=== PATIENT | male | born 1990 | race African-American/Black ===

== ENCOUNTER 2019-07-23 20:38 | Emergency (ER) | payer SELFPAY ==
[~2019-07-23] VITALS: Ht 175.3 cm; Wt 83.0 kg
[2019-07-23 20:50] VITALS: BP 132/69
[2019-07-23] MEDS ORDERED: KETOROLAC 60MG/2ML VIAL IM ONE (22:00)
[2019-07-23] MEDS ORDERED: DIPHENHYDRAMINE 25MG CAPSULE PO ONE (22:30)
[2019-07-23] MEDS ORDERED: ONDANSETRON 4MG ODT PO ONE (22:30)
== END 2019-07-23 23:30 | disposition home or self-care (01) ==
LOC: ER 20:38
DX: J06.9 Acute upper respiratory infection, unspecified (principal); J45.909 Unspecified asthma, uncomplicated; M79.10 Myalgia, unspecified site
CPT/HCPCS: 96372; 99283; J1885; Q0162; Q0163